=== PATIENT | female | born 1985 | race Caucasian/White ===

== ENCOUNTER 2019-05-29 09:04 | Emergency (ER) | payer OTHER, SELFPAY ==
--- NOTE | ~2019-05-29 | XR_ITS ---
XR shoulder LT min 2V DATE: 05/29/2019 11:25 INDICATION: Fall one week ago. Left shoulder pain. TECHNIQUE: 4 views COMPARISON: None FINDINGS: No fracture or dislocation, periosteal reaction or bone destruction or abnormal soft tissue calcification. IMPRESSION: Negative Reviewed, dictated and finalized at location B. SWARE MAKER IMPRESSION: Negative
[2019-05-29 09:17] VITALS: BP 129/69; PULSE 90; RESP 18; TEMP 36.8; O2SAT 98
--- NOTE | 2019-05-29 12:12 | ED.UPPEXIN ---
HPI - Extremity Injury (Upper) General Chief Complaint: Extremity Injury, Upper Stated Complaint: left shoulder injury Time Seen by Provider: 05/29/19 10:28 Source: patient Mode of arrival: ambulatory Limitations: no limitations History of Present Illness HPI narrative: Patient presents with chief complaint of left shoulder pain that has been persistent over the past week. Patient states she fell while walking down the steps 1 week ago and developed pain to the area. Patient states the pain worsens with any range of motion. Patient states she was seen at [facility] and had negative x-rays. Patient states that she was instructed to follow-up with her primary care provider but they cannot see her today so she presented to the emergency department. Related Data Home Medications Medication Instructions Recorded Confirmed methocarbamol mg 05/29/19 Allergies Allergy/AdvReac Type Severity Reaction Status Date / Time No Known Allergies Allergy Unknown Verified 05/29/19 10:32 Review of Systems Review of Systems: Narrative: CONSTITUTIONAL: Denies fever, chills, or sweats. EYES: Denies visual changes, redness, or discharge. ENT: Denies rhinorrhea, congestion, sore throat, or otalgia. CARDIOVASCULAR: Denies chest pain, palpitations, or edema. RESPIRATORY: Denies cough or dyspnea. GASTROINTESTINAL: Denies abdominal pain, nausea, vomiting, or diarrhea. GENITOURINARY: Denies dysuria or hematuria. SKIN: Denies rash or itching. MUSCULOSKELETAL: Reports left shoulder pain denies back pain, or myalgia. NEUROLOGIC: Denies headache, numbness, dizziness, or weakness. PSYCHIATRIC: Denies anxiety or depression. [facility] Family History Family History (Updated 04/25/19 @ 11:22 by RENU Whatley) Other Cerebrovascular accident Diabetes mellitus Heart disease Exam Narrative: Exam Narrative: GENERAL: Well-appearing, well-nourished, and in no acute distress. HEAD: Normocephalic, atraumatic. EYES: PERRLA and EOMI. ENT: Nares clear, no rhinorrhea or epistaxis. Mucous membranes moist. Oropharynx without tonsillar hypertrophy exudate or other lesions. Bilateral TMs pearly corona nonbulging NECK: Supple. No adenopathy or masses. No carotid bruits or JVD CHEST: Clear to auscultation. No respiratory distress. No wheezes rales or rhonchi HEART: Regular rate and rhythm. No murmur heard. Normal peripheral pulses. ABDOMEN: Soft, nontender, nondistended, normal active bowel sounds. EXTREMITIES: Normal range of motion to shoulder however patient reports pain suggestive of rotator cuff injury but not complete tear. No edema, erythema or ecchymosis. SKIN: Warm, dry, no rash. NEURO: No focal deficits. Alert and oriented x3. PSYCH: Normal mood and affect. Course Vital Signs Vital signs: Vital Signs Temperature 98.3 F 05/29/19 09:17 Pulse Rate 90 05/29/19 09:17 Respiratory Rate 18 05/29/19 09:17 Blood Pressure 129/69 05/29/19 09:17 Pulse Oximetry 98 05/29/19 09:17 Temperature 98.3 F 05/29/19 09:17 Pulse Rate 90 05/29/19 09:17 Respiratory Rate 18 05/29/19 09:17 Blood Pressure 129/69 05/29/19 09:17 Pulse Oximetry 98 05/29/19 09:17 MDM - Extremity Injury (Upper) MDM Narrative Medical decision making narrative: Discussed with patient that her symptoms point towards rotator cuff injury. Offered the patient repeat x-ray, which was negative, to rule out occult fracture. patient was informed that she will need to follow-up with her primary care or air traffic control specialist for further evaluation which will likely include MRI to evaluate tendons and ligaments. Informed patient that we do not perform those MRIs in emergency department. Instructed patient if discharge instruction to rest, ice, avoid overuse, Tylenol and NSAIDs. Differential Diagnosis Differential diagnosis: Likely sprain and strain of wrist, fracture of wrist, finger sprain, dislocation of finger, fracture of hand, dislocation of shoulder, f
== END 2019-05-29 12:34 | disposition home or self-care (01) ==
PROVIDERS: Emergency Provider Emergency Medicine
DX: S46.912A Strain of unspecified muscle, fascia and tendon at shoulder and upper arm level, left arm, initial encounter (principal); W10.9XXA Fall (on) (from) unspecified stairs and steps, initial encounter
CPT/HCPCS: 73030; 81025; 99283

== ENCOUNTER 2019-06-05 08:16 | Emergency (ER) | payer OTHER, SELFPAY ==
[2019-06-05 08:25] VITALS: BP 113/66; PULSE 90; RESP 16; TEMP 37.2; O2SAT 99
--- NOTE | 2019-06-05 08:26 | ED.UPPEXIN ---
HPI - Extremity Injury (Upper) General Chief Complaint: Extremity Injury, Upper Stated Complaint: left shoulder injury Time Seen by Provider: 06/05/19 08:30 Source: patient and RN notes reviewed Mode of arrival: ambulatory Limitations: no limitations History of Present Illness HPI narrative: 33 year old female who presents to [facility] [facility] care with complaints of left shoulder pain since experiencing fall on the at her fathers house where she slipped landing on her left hip and tried to break her fall with her left arm, hyper-extending her arm. She states that she didn't initially experience pain to her shoulder or feel a pop in shoulder at time of injury. Patient states that she went to [facility] and they xrayed her left hip at that visit. Afterward she started having increasing difficulty with movement and pain to her left shoulder. She was seen on the 29 of May at [facility] and standard xray film of left shoulder was done. Patient states that she has been unable to get into her PCP for referral to ortho or get an MRI of her left shoulder. She continues to experience limited ROM of her left shoulder with pain to left AC joint and anterior upper arm. Patient denies any tingling or numbness to her left arm or hand, has strong left radial and brachial pulses. complaint: injury to: left Onset (ago): day(s) (inital injury on 05/14/2019) Other Extremity Injury: Left: shoulder Other injuries: none Handedness: right Place: other Severity: moderate Severity scale (1-10): 5 Relieving factors: medication and rest Exacerbating factors: movement of extremity Context: fall Associated symptoms: weakness and other (difficulty with forward flexion and movement) Treatments prior to arrival: cold therapy and NSAIDS Related Data Home Medications Medication Instructions Recorded Confirmed methocarbamol 750 mg PO QID PRN 05/29/19 06/05/19 Allergies Allergy/AdvReac Type Severity Reaction Status Date / Time No Known Allergies Allergy Unknown Verified 05/29/19 10:32 Review of Systems Review of Systems: Narrative: CONSTITUTIONAL: Denies fever, chills, or sweats. EYES: Denies visual changes, redness, or discharge. ENT: Denies rhinorrhea, congestion, sore throat, or otalgia. CARDIOVASCULAR: Denies chest pain, palpitations, or edema. RESPIRATORY: Denies cough or dyspnea. GASTROINTESTINAL: Denies abdominal pain, nausea, vomiting, or diarrhea. GENITOURINARY: Denies dysuria or hematuria. SKIN: Denies rash or itching. MUSCULOSKELETAL: Denies back pain,positive left shoulder pain with limited movement, or myalgia. NEUROLOGIC: Denies headache, numbness, or weakness. PSYCHIATRIC: Denies anxiety or depression. All systems reviewed & are unremarkable except as noted in HPI and below PMFSH Past Medical History Medical History (Updated 06/06/19 @ 00:00 by Jocy Lynn) Hx of migraines Surgical History Surgical History (Updated 06/05/19 @ 09:17 by Glendy Wyman NP) Hx of cholecystectomy Status post left foot surgery Tubal ligation status Family History Family History Other Cerebrovascular accident Diabetes mellitus Heart disease Social History Social History (Updated 06/05/19 @ 09:16 by Glendy Wyman NP) Smoking status: Former smoker Smoking end date: 04/23/17 Living arrangements: with family Gender identity (if verbalized by the patient): Female Comments At time of signature, agree with nursing past medical, and social history. There is no relevant family history pertinent to the presenting complaint Exam Narrative: Exam Narrative: GENERAL: Well-appearing, well-nourished, and in no acute distress. HEAD: Normocephalic, atraumatic. EYES: PERRLA and EOMI. ENT: Nares clear, no rhinorrhea or epistaxis. Mucous membranes moist. NECK: Supple.no lymphadenopathy CHEST: Clear to auscultation. No respiratory distress. HEART: Regular rate and rhyt
== END 2019-06-05 09:30 | disposition home or self-care (01) ==
PROVIDERS: Emergency Provider Registered Nurse
DX: S46.912D Strain of unspecified muscle, fascia and tendon at shoulder and upper arm level, left arm, subsequent encounter (principal); W19.XXXD Unspecified fall, subsequent encounter; Z87.891 Personal history of nicotine dependence
CPT/HCPCS: 99213; G0463